=== PATIENT | female | born 1965 | race Caucasian/White ===

== ENCOUNTER 2019-09-08 06:27 | Day surgery (SDC) | payer BC ==
[2019-09-04 12:38] VITALS: BMI 29.8
[2019-09-08] MEDS ORDERED: MIDAZOLAM HCL 2 MG/2 ML SINGLE DOSE VIAL ONE (07:15)
[2019-09-08] MEDS ORDERED: LIDOCAINE HCL 2% 100 MG/5 ML DISP.SYRIN ONE (07:18)
[2019-09-08] MEDS ORDERED: LIDOCAINE HCL/PF 2% SDV 5ML VIAL ONE (07:18)
[2019-09-08] MEDS ORDERED: KETOROLAC TROMETHAMINE 30 MG/1 ML VIAL ONE (07:18)
[2019-09-08] MEDS ORDERED: ONDANSETRON 4 MG/2 ML VIAL ONE (07:18)
[2019-09-08] MEDS ORDERED: DEXAMETHASONE SOD PHOSPHATE 4 MG/1 ML VIAL ONE (07:18)
[2019-09-08] MEDS ORDERED: PROPOFOL 20 ML ONE ×2 (07:19→08:24)
[2019-09-08] MEDS ORDERED: oxyCODONE HCL 5 MG TABLET PO PRN ×4 (07:38→10:57)
[2019-09-08] MEDS ORDERED: ONDANSETRON 4 MG/2 ML VIAL IVPUSH PRN (07:38)
[2019-09-08] MEDS ORDERED: LACTATED RINGERS SOLUTION 1,000 ML IV SCH ×2 (07:45→11:00)
[2019-09-08] MEDS ORDERED: BUPIVACAINE HCL/PF 2.5 MG/ML - 30 ML VIAL IJ ONE (07:59)
--- NOTE | 2019-09-08 08:02 | HP ---
History & Physical Update - History History: No Change - Physical Physical: No Change - Assessment Assessment: No Change - Plan Plan: No Change (no change since h&p done 08/19 (Dr Jacob))
[2019-09-08] MEDS ORDERED: ROCURONIUM BROMIDE 50 MG/5 ML SYRINGE ONE (08:12)
[2019-09-08] MEDS ORDERED: ceFAZolin SODIUM 1 GM VIAL ONE (08:26)
[2019-09-08] MEDS ORDERED: SODIUM CHLORIDE 0.9% P/F 10 ML VIAL IJ ONE (08:26)
[2019-09-08] MEDS ORDERED: ACETAMINOPHEN INJECTION 100 ML IVPB ONE (10:56)
[2019-09-08] MEDS ORDERED: ONDANSETRON 4 MG/2 ML VIAL IVPB PRN (10:57)
[2019-09-08] MEDS ORDERED: ACETAMINOPHEN 1000 MG/100 ML VIAL (NON FORMULARY) IVPB ONE (11:00)
--- NOTE | 2019-09-08 11:00 | OP ---
Operative Note - Note: Operative Date: 09/08/19 Pre-Operative Diagnosis: bilateral breast capsular contracture Operation: bilateral breast capsulectomy Post-Operative Diagnosis: Same as Pre-op Surgeon: Venkata Trivedi Strategy Execution Consultant: Chito Inman Anesthesia: General Operative Report Dictated: Yes
--- NOTE | 2019-09-08 12:00 | OP ---
DATE OF OPERATION: 09/08/2019 PROCEDURE: Bilateral removal of intact breast prostheses with bilateral complete periprosthetic capsulotomy. ATTENDING SURGEON: Venkata Trivedi MD INPATIENT PHARMACIST: CHELA Goel PREOPERATIVE DIAGNOSES: Bilateral Lee grade 4 capsular contracture, bilateral pain and deformity of breast reconstruction and status post bilateral mastectomy for breast cancer. ANESTHESIA: General endotracheal anesthesia. DESCRIPTION OF PROCEDURE: Patient is counseled the risks, benefits, and alternatives to the procedure, understands, and agrees to proceed. She is marked in the holding area awake and aware of incision and resulting scars. Patient was brought to the operating room and placed in a supine position. Position was carefully checked by surgical and anesthesia teams. A gram of Ancef was given preoperatively. Position is confirmed. Sequential compression stockings and ENIO hose are applied. She was prepped and draped in a standard surgical fashion. A time-out is called. Patient, procedure site, sides are verified. Left side is addressed 1st. An incision is made excising the existing mastectomy scar. Dissection was carried out to the level of the periprosthetic capsule. A contracted, firm, fibrotic capsule is identified, and this is dissected from the surrounding tissue in a plane between the skeletal muscle and the capsule. Capsule is removed en bloc with the texted surface saline implant. The entirety of the capsule is removed. Hemostasis meticulously achieved. There are several Ethibond sutures, which are likewise removed at the left inframammary fold. This wound is packed with lap gauzes temporarily while attention is then directed on the right side. On the right side, a mirror image procedure is performed. A full capsulotomy is performed including the anterior and posterior capsule. This is dissected en bloc with the existing textured surface saline implant. Hemostasis is meticulously achieved. The posterior surface of the capsulotomy wound is curetted. Hemostasis once again achieved. The pockets are irrigated with dilute Betadine in normal saline. On the patient's left side, it is identified that a medial fullness is persistent, and this is reduced with a lipectomy medially as part of the removal. Two size 10 flat Isidoro drains are brought out through lateral stab wound incisions and are secured with a 2-0 silk drain suture. Closure is 1st performed of the pectoralis muscle with a running 3-0 Monocryl suture. The skin is then closed with a series of interrupted, buried, deep dermal 3-0 Monocryl suture. The skin is then trimmed of any excess prior to final closure. This is done with face lift scissors. Final hemostasis is achieved. Final closure is performed, again with a series of interrupted, buried, deep dermal 3-0 Monocryl suture followed by a running subcuticular 3-0 Monocryl suture bilaterally. Dressings are applied with 1/2-inch Steri-Strips lengthwise, Biopatches to the drains, 4 x 4's, ABD, and a breast binder. All tissues appear pink and viable. Drains were placed to bulb suction. Patient transferred to recovery without complication. Henrique WELSH/[id number]
[2019-09-08 13:16] VITALS: BP 114/72; PULSE 76; TEMP 99.4
--- NOTE | 2019-09-08 15:57 | SURG ---
Surgery [facility] [facility] [facility] Note [employer]: Chito Inman PA-C (Suzy) Date of Service: 09/08/19 Diagnosis: bilateral breast capsular contracture Procedure: Operation: bilateral breast capsulectomy, removal of implants I was present for the entirety of the operative procedure. For further detail, please refer to operative report. Visit type - Case Type Case Type: Scheduled - Emergency Emergency Visit: No - New patient This patient is new to me today: Yes Date on this admission: 09/08/19 - Critical Care Critical Care patient: No
--- NOTE | 2019-09-12 16:31 | PATH ---
Surgical Pathology Report Patient Name: ELLEN CONTRERAS [facility]. Rec. #: [id number] /Age/Gender: 1965 (Age: 54) / F Account: [id number] [facility] Taken: 09/08/2019 Received: 09/08/2019 Reported: 09/12/2019 Physicians: Venkata Trivedi Specimen(s) Received A: LEFT BREAST CAPSULE B: LEFT BREAT IMPLANT C: RIGHT BREAST CAPSULE D: RIGHT BREAST IMPLANT Clinical History Capsular contracture bilateral breasts Final Diagnosis A. CAPSULE, LEFT BREAST, CAPSULECTOMY: FIBROUS CAPSULE, FIBROADIPOSE TISSUE AND SKELETAL MUSCLE. B. IMPLANT, LEFT BREAST, REMOVAL: IMPLANT, DESCRIBED (GROSS EXAMINATION ONLY). C. CAPSULE, RIGHT BREAST, CAPSULECTOMY: FIBROUS CAPSULE, FIBROADIPOSE TISSUE AND SKELETAL MUSCLE. SKIN WITH NO PATHOLOGIC FINDINGS. D. IMPLANT, RIGHT BREAST, REMOVAL: IMPLANT, DESCRIBED (GROSS EXAMINATION ONLY). Electronically Signed Ida Pandya M.D. Gross Description A. Received in formalin labeled "left breast capsule," is a 9.5 x 6.5 x 1.4 cm aggregate of multiple portions of payan fibrous tissue, consistent with a breast capsule. No discrete masses are identified. Loss Prevention Auditor sections are submitted in one cassette. B. Received fresh labeled "left breast implant," is an 11.5 x 10.0 x 4.0 cm payan, intact breast implant. No soft tissue is present. No sections are submitted, gross only. C. Received in formalin labeled "right breast capsule," is a 7.5 x 6.5 x 1.8 cm aggregate of multiple portions of payan fibrous tissue, consistent with a breast capsule. No discrete masses are identified. Also received within the same container is a 7.5 x 0.8 cm payan, unremarkable portion of skin. Loss Prevention Auditor sections are submitted in one cassette. D. Received fresh labeled "right breast implant," is an 11.5 x 10.0 x 4.0 cm payan, intact breast implant. No soft tissue is present. No sections are submitted, gross only. DL/09/09/2019 saudi09/09/2019
== END 2019-09-08 13:19 | disposition home or self-care (01) ==
LOC: FASU 06:27
PROVIDERS: ATTEND Plastic Surgery
PROC: 0HPT0JZ Removal of Synthetic Substitute from Right Breast, Open Approach (ICD-10-PCS; 2019-09-08)
PROC: 0HPU0JZ Removal of Synthetic Substitute from Left Breast, Open Approach (ICD-10-PCS; principal; 2019-09-08 08:37)
DX: T85.44XA Capsular contracture of breast implant, initial encounter (principal); Y82.8 Other medical devices associated with adverse incidents; Y92.9 Unspecified place or not applicable; N65.0 Deformity of reconstructed breast; Z90.13 Acquired absence of bilateral breasts and nipples; Z85.3 Personal history of malignant neoplasm of breast
CPT/HCPCS: 88300-TC; 88304-TC; 94760; J0131